=== PATIENT | female | born 1950 | race Two or more races ===

== ENCOUNTER 2021-09-05 10:39 | Outpatient (CLI) | payer OTHER | END 2021-09-05 10:50 | disposition home or self-care (01) | LOC: RX STUDY 10:39 | PROVIDERS: ATTEND Surgery | DX: K59.09 Other constipation (principal); K64.8 Other hemorrhoids; L29.0 Pruritus ani ==

== ENCOUNTER 2024-12-10 15:03 | Outpatient (CLI) | payer OTHER | END 2024-12-10 15:16 | disposition home or self-care (01) | LOC: EKG 15:03 | DX: I49.9 Cardiac arrhythmia, unspecified (principal) ==